=== PATIENT | female | born 1995 | race Caucasian/White ===

== ENCOUNTER 2021-01-22 11:40 | Emergency (ER) | payer OTHER ==
[2021-01-22 12:05] VITALS: PULSE 74; O2SAT 99
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
--- NOTE | 2021-01-22 12:57 | XRAY ---
Indication: Right lower quadrant pain. Limited OB ultrasound demonstrates a single viable intrauterine with heart rate 163 BPM. Composite mean gestational age is 15 weeks 2 days. Anterior placenta without abruption/previa.
[2021-01-22 13:21] LABS: Appearance CLOUDY (CLEAR); Bacteria MODERATE /HPF (NEGATIVE); Bilirubin NEGATIVE (NEGATIVE); Blood NEGATIVE Ery/ul (0-5); Epithelial Cells PACKED /HPF (FEW); Glucose NEGATIVE (NEGATIVE); Ketones TRACE (NEGATIVE); Leukocyte Esterase SMALL (NEGATIVE); Mucus MANY /HPF (NEGATIVE); Nitrite NEGATIVE (NEGATIVE); Protein,Urine Dip 30 (Negative); Specific Gravity 1.021 (1.005-1.025); Urobilinogen NEGATIVE mg/dL (0-1); WBC 26-50 /HPF (0-5)
== END 2021-01-22 13:59 | disposition home or self-care (01) ==
LOC: ED 11:40
DX: O23.42 Unspecified infection of urinary tract in pregnancy, second trimester (principal); Z3A.15 15 weeks gestation of pregnancy
CPT/HCPCS: 76805; 81001; 87086; 99283

== ENCOUNTER 2021-03-25 14:05 | Observation (INO) | payer OTHER ==
[2021-03-25 14:41] VITALS: BP 112/57; PULSE 79
== END 2021-03-25 18:40 | disposition home or self-care (01) ==
LOC: OB 14:05
PROVIDERS: ADMIT Family Medicine; ATTEND Family Medicine
DX: Z34.02 Encounter for supervision of normal first pregnancy, second trimester (principal); Z3A.23 23 weeks gestation of pregnancy
CPT/HCPCS: G0378

== ENCOUNTER 2021-05-30 13:15 | Observation (INO) | payer OTHER ==
[2021-05-30 13:48] LABS: Appearance CLOUDY (CLEAR); Bacteria RARE /HPF (NEGATIVE); Bilirubin NEGATIVE (NEGATIVE); Blood NEGATIVE Ery/ul (0-5); Epithelial Cells MODERATE /HPF (FEW); Glucose NEGATIVE (NEGATIVE); Ketones NEGATIVE (NEGATIVE); Leukocyte Esterase TRACE (NEGATIVE); Mucus SLIGHT /HPF (NEGATIVE); Nitrite NEGATIVE (NEGATIVE); Protein,Urine Dip NEGATIVE (Negative); RBC 0-2 /HPF (0-2); Specific Gravity 1.016 (1.005-1.025); Urobilinogen NEGATIVE mg/dL (0-1)
[2021-05-30 13:49] VITALS: BP 120/63; PULSE 90
== END 2021-05-30 15:55 | disposition home or self-care (01) ==
LOC: OB 13:15
PROVIDERS: ADMIT Family Medicine; ATTEND Family Medicine
DX: Z34.03 Encounter for supervision of normal first pregnancy, third trimester (principal); Z3A.32 32 weeks gestation of pregnancy
CPT/HCPCS: 81001; G0378

== ENCOUNTER 2021-06-18 09:46 | Observation (INO) | payer OTHER ==
[2021-06-18 11:51] LABS: Appearance SLIGHTLY CLOUDY (CLEAR); Bilirubin NEGATIVE (NEGATIVE); Blood NEGATIVE Ery/ul (0-5); Epithelial Cells RARE /HPF (FEW); Glucose NEGATIVE (NEGATIVE); Ketones NEGATIVE (NEGATIVE); Leukocyte Esterase NEGATIVE (NEGATIVE); Mucus SLIGHT /HPF (NEGATIVE); Nitrite NEGATIVE (NEGATIVE); Protein,Urine Dip NEGATIVE (Negative); Specific Gravity 1.015 (1.005-1.025); Urobilinogen NEGATIVE mg/dL (0-1); WBC 0-2 /HPF (0-5)
[2021-06-18 12:04] VITALS: PULSE 77
[2021-06-18 12:07] VITALS: BP 177/67
== END 2021-06-18 13:15 | disposition home or self-care (01) ==
LOC: OB 09:46 → UNDOADMOB 09:46 → UNDODISOB 13:15
PROVIDERS: ADMIT Family Medicine; ATTEND Family Medicine
DX: O26.893 Other specified pregnancy related conditions, third trimester (principal); Z3A.36 36 weeks gestation of pregnancy; R10.9 Unspecified abdominal pain
CPT/HCPCS: 81001; G0378

== ENCOUNTER 2021-07-09 00:05 | Observation (INO) | payer OTHER ==
[2021-07-09 00:47] VITALS: BP 131/68; PULSE 87; O2SAT 98
[2021-07-09] MEDS ORDERED: TYLENOL EXTRA STRENGTH 500 MG PO PRN (01:00)
[2021-07-09] MEDS ORDERED: TYLENOL EXTRA STRENGTH 500 MG ONE (01:03)
[2021-07-09 01:18] LABS: Amphetamine,Urine NEGATIVE (NEGATIVE); Barbiturate,Urine NEGATIVE (NEGATIVE); Benzodiazepine,Urine NEGATIVE (NEGATIVE); Cocaine,Urine NEGATIVE (NEGATIVE); Methadone,Urine NEGATIVE (NEGATIVE); Opiate,Urine NEGATIVE (NEGATIVE); PCP,Urine NEGATIVE (NEGATIVE); THC,Urine NEGATIVE (NEGATIVE)
[2021-07-09 01:20] LABS: Appearance SLIGHTLY CLOUDY (CLEAR); Bilirubin NEGATIVE (NEGATIVE); Blood NEGATIVE Ery/ul (0-5); Epithelial Cells RARE /HPF (FEW); Glucose NEGATIVE (NEGATIVE); Ketones NEGATIVE (NEGATIVE); Leukocyte Esterase NEGATIVE (NEGATIVE); Mucus SLIGHT /HPF (NEGATIVE); Nitrite NEGATIVE (NEGATIVE); Protein,Urine Dip NEGATIVE (Negative); RBC 0-2 /HPF (0-2); Specific Gravity 1.023 (1.005-1.025); Urobilinogen NEGATIVE mg/dL (0-1); WBC 0-2 /HPF (0-5)
[2021-07-09 01:55] LABS: Hematocrit 33.9 % (35-47); Hemoglobin 10.8 gm/dl (12.0-16.0); Mean Cell Volume 93.9 fl (78-100); Mean Corpuscular Hemoglobin 29.9 pg (26-32); Mean Corpuscular Hgb Concent. 31.9 g/dl (32-36); Mean Platelet Volume 10.1 fl (7.5-11.0); Platelet Count 294 K/mm3 (150-450); Red Blood Count 3.61 M/mm3 (4.1-5.4); Red Cell Distribution Width 14.4 % (11.5-14.0); White Blood Count 10.8 K/mm3 (4.0-10.5)
[2021-07-09 02:06] LABS: ALBUMIN 3.4 g/dL (3.5-5.0); ALKALINE PHOSPHATASE 188 U/L (38-126); ANION GAP 10.3 MEQ/L (5-15); BLOOD UREA NITROGEN 14 mg/dL (7-17); CHLORIDE 105 mmol/L (98-107); Calcium 9.3 mg/dL (8.4-10.2); Carbon Dioxide 22 mmol/L (22-30); EST GLOMERULAR FILTRATION RATE > 60.0 ML/MIN; Glucose 99 mg/dL (74-106); Potassium 3.8 mmol/L (3.5-5.1); SGOT/AST 23 U/L (14-36); SGPT/ALT 21 U/L (0-35); SODIUM 133 mmol/L (137-145); Total Protein 6.4 g/dL (6.3-8.2)
== END 2021-07-09 02:55 | disposition home or self-care (01) ==
LOC: UNDOADMOB 00:05 → MED SURG 00:05 → UNDODISOB 02:55
PROVIDERS: ADMIT Family Medicine; ATTEND Family Medicine
DX: Z34.03 Encounter for supervision of normal first pregnancy, third trimester (principal); Z3A.39 39 weeks gestation of pregnancy
CPT/HCPCS: 36415; 80053; 80307; 81001; 85027; G0378; A9270-GY

== ENCOUNTER 2021-07-09 07:56 | Inpatient (IN) | payer OTHER ==
[2021-07-09] MEDS ORDERED: XYLOCAINE 1% HCL 20 ML MDV IJ PRN (16:34)
[2021-07-09] MEDS ORDERED: BRETHINE 1 MG/ML SQ PRN (16:34)
[2021-07-09] MEDS ORDERED: TYLENOL EXTRA STRENGTH 500 MG PO PRN (16:34)
[2021-07-09] MEDS ORDERED: Zofran 4 MG/2 ML VIAL IV PRN (16:34)
[2021-07-09] MEDS ORDERED: Cervidil 10 MG VAG SCH ×2 (16:45→22:00)
[2021-07-09] MEDS ORDERED: PITOCIN 30 UNITS/ LR 500 ML 30 UNITS/500 ML IV.SOLN. IV SCH (17:00)
[2021-07-09 20:27] LABS: Barbiturate,Urine NEGATIVE (NEGATIVE); Benzodiazepine,Urine NEGATIVE (NEGATIVE); Cocaine,Urine NEGATIVE (NEGATIVE); Methadone,Urine NEGATIVE (NEGATIVE); Opiate,Urine NEGATIVE (NEGATIVE); PCP,Urine NEGATIVE (NEGATIVE); THC,Urine NEGATIVE (NEGATIVE)
[2021-07-09 20:30] LABS: Amphetamine,Urine NEGATIVE (NEGATIVE)
[2021-07-09 21:01] LABS: Absolute Neutrophil Ct (ANC) 7.42 (1.4-6.9); BASOPHIL % 0.3 % (0.0-0.4); Basophil (Absolute #) 0.03 (0-0.4); Eosinophil % 4.7 % (0.00-5.0); Eosinophil (Absolute #) 0.51 (0-0.5); Hematocrit 34.4 % (35-47); Hemoglobin 10.9 gm/dl (12.0-16.0); Lymphocyte (Absolute #) 2.26 (1.0-4.6); Lymphocytes % 20.7 % (24.0-44.0); Mean Cell Volume 94.5 fl (78-100); Mean Corpuscular Hemoglobin 29.9 pg (26-32); Mean Corpuscular Hgb Concent. 31.7 g/dl (32-36); Mean Platelet Volume 10.1 fl (7.5-11.0); Monocyte (Absolute #) 0.69 (0.0-1.3); Monocytes % 6.3 % (0.0-12.0); Platelet Count 323 K/mm3 (150-450); Red Blood Count 3.64 M/mm3 (4.1-5.4); Red Cell Distribution Width 14.5 % (11.5-14.0); White Blood Count 10.9 K/mm3 (4.0-10.5)
[2021-07-09 21:40] LABS: ABO TYPING A; Antibody Screen NEGATIVE (NEGATIVE); RH TYPING POSITIVE
[2021-07-10] MEDS ORDERED: Ephedrine Sulfate 50 MG/ML IV PRN (04:34)
[2021-07-10] MEDS ORDERED: PITOCIN 30 UNITS/ LR 500 ML 30 UNITS/500 ML IV.SOLN. IV SCH (06:00)
[2021-07-10] MEDS: Nicoderm CQ 21 MG TOP SCH (08:37)
[2021-07-10] MEDS: Lactated Ringers 1,000 ML IV SCH (09:20)
[2021-07-10] MEDS: PITOCIN 30 UNITS/ LR 500 ML 30 UNITS/500 ML IV.SOLN. IV SCH (09:20)
[2021-07-10] MEDS ORDERED: OB EPIDURAL NAROPIN/SUFENTANIL IN NACL EPIDURAL PRN (12:00)
[2021-07-10] MEDS ORDERED: Lactated Ringers 1,000 ML IV ONE (12:00)
[2021-07-10] MEDS ORDERED: STADOL 2 MG IV PRN (21:42)
[2021-07-10] MEDS: STADOL 2 MG IV PRN (23:47)
[2021-07-11] MEDS: STADOL 2 MG IV PRN (04:09)
[2021-07-11] MEDS: Lactated Ringers 1,000 ML IV SCH ×2 (05:47→06:43)
[2021-07-11] MEDS ORDERED: Reglan 10 MG/2 ML IV SCH (07:45)
[2021-07-11] MEDS ORDERED: Pepcid 20 MG VIAL IV SCH (07:45)
[2021-07-11] MEDS ORDERED: SOD CITRATE-CITRIC ACID SOLN PO SCH (07:45)
[2021-07-11] MEDS ORDERED: Zithromax 500 MG/ 250 ML NaCl Premix 500 MG/250 ML IVPB IV ONE (08:00)
[2021-07-11] MEDS ORDERED: CLINDAMYCIN-D5W 900 MG/50 ML*** 900 MG/50 ML BAG IV SCH (08:00)
[2021-07-11 08:02] LABS: INR 0.94 (0.8-3.0); PROTIME 11.1 SECONDS (9.4-12.5)
[2021-07-11 08:05] LABS: PTT 25.7 SECONDS (25.1-36.5)
[2021-07-11] MEDS ORDERED: XYLOCAINE 2%/Epi 1:200000 20ML VIAL MPF ONE (08:05)
[2021-07-11] MEDS ORDERED: Pitocin 10 UNITS/ML ONE ×3 (08:20→08:49)
[2021-07-11] MEDS ORDERED: Astramorph-Pf 5 MG/10 ML ONE (08:21)
[2021-07-11] MEDS ORDERED: Lactated Ringers 1,000 ML IV ONE (08:28)
[2021-07-11] MEDS ORDERED: MARCAINE 0.5%-EPI 1:200,000 VL IJ ONE (08:43)
[2021-07-11] MEDS ORDERED: Marcaine 0.5%/Epinephrine 10 ML ONE (08:43)
[2021-07-11] MEDS ORDERED: DEMEROL 50 MG ONE (09:14)
[2021-07-11] MEDS ORDERED: MORPHINE SULFATE 2 MG INJ IV PRN (09:23)
[2021-07-11] MEDS ORDERED: BENADRYL 50 MG/ML IV PRN (09:23)
[2021-07-11] MEDS ORDERED: CLARITIN 10 MG PO PRN (09:23)
[2021-07-11] MEDS ORDERED: HOLD NARCOTIC ANALGESICS AND SEDATIVES X24 HR MC PRN (09:23)
[2021-07-11 10:08] LABS: Appearance CLEAR (CLEAR); Bacteria RARE /HPF (NEGATIVE); Bilirubin NEGATIVE (NEGATIVE); Blood SMALL Ery/ul (0-5); Epithelial Cells RARE /HPF (FEW); Glucose NEGATIVE (NEGATIVE); Ketones MODERATE (NEGATIVE); Leukocyte Esterase NEGATIVE (NEGATIVE); Mucus SLIGHT /HPF (NEGATIVE); Nitrite NEGATIVE (NEGATIVE); Protein,Urine Dip NEGATIVE (Negative); Specific Gravity 1.017 (1.005-1.025); Urobilinogen NEGATIVE mg/dL (0-1)
[2021-07-11] MEDS: Dextrose 5%-Lr IV Solution 1000 ML 1,000 ML IV SCH ×2 (10:22→18:56)
[2021-07-11] MEDS ORDERED: M-M-R II Vaccine With Diluent SQ ONE (15:00)
[2021-07-11] MEDS: MOTRIN 400 MG PO PRN ×2 (15:49→22:27)
[2021-07-11] MEDS ORDERED: CLINDAMYCIN-D5W 900 MG/50 ML*** 900 MG/50 ML BAG IV ONE (16:00)
[2021-07-11] MEDS: PERCOCET TABLET 5/325MG PO PRN (19:34)
[2021-07-11] MEDS: Nicoderm CQ 21 MG TOP SCH (22:00)
[2021-07-11] MEDS ORDERED: Ambien 10 MG PO PRN (22:06)
[2021-07-11] MEDS: Mylicon 80MG PO PRN (22:26)
[2021-07-12 05:56] LABS: Absolute Neutrophil Ct (ANC) 6.48 (1.4-6.9); BASOPHIL % 0.2 % (0.0-0.4); Basophil (Absolute #) 0.02 (0-0.4); Eosinophil % 1.3 % (0.00-5.0); Eosinophil (Absolute #) 0.13 (0-0.5); Hematocrit 26.6 % (35-47); Hemoglobin 8.3 gm/dl (12.0-16.0); Lymphocyte (Absolute #) 2.43 (1.0-4.6); Lymphocytes % 24.6 % (24.0-44.0); Mean Cell Volume 95.3 fl (78-100); Mean Corpuscular Hemoglobin 29.7 pg (26-32); Mean Corpuscular Hgb Concent. 31.2 g/dl (32-36); Mean Platelet Volume 10.5 fl (7.5-11.0); Monocyte (Absolute #) 0.81 (0.0-1.3); Monocytes % 8.2 % (0.0-12.0); Neutrophil % 65.7 % (36.0-66.0); Platelet Count 279 K/mm3 (150-450); Red Blood Count 2.79 M/mm3 (4.1-5.4); Red Cell Distribution Width 14.6 % (11.5-14.0); White Blood Count 9.9 K/mm3 (4.0-10.5)
[2021-07-12] MEDS: PERCOCET TABLET 5/325MG PO PRN (07:06)
--- NOTE | 2021-07-12 08:17 | OP ---
SURGERY DATE/TIME: 07/11/2021810 PREOPERATIVE DIAGNOSIS: Intrauterine at 39 weeks and 2 days gestation emulated with breech presentation. POSTOPERATIVE DIAGNOSIS: Intrauterine at 39 weeks and 2 days gestation emulated with breech presentation. PROCEDURE: Primary section, low flap transverse uterine incision, Pfannenstiel skin incision. SURGEON: Dane Gates D.O. [employer] PROFESSOR: Dinesh Aguilar, surgical services manager. ANESTHESIA: Epidural. ESTIMATED BLOOD LOSS: 450 cc. COMPLICATIONS: None. INDICATIONS: The risks, benefits, indications and alternatives of the procedure were reviewed with the patient prior to procedure. The patient understood the risk of infection, bleeding, bowel injury, bladder injury, ureteral injury, uterine perforation, pelvic infection and thromboembolic disorder associated with the surgery however desires to have this surgery as a possible need to alleviate her current medical condition. DESCRIPTION OF PROCEDURE AND FINDINGS: At this point the patient is taken to the operating room secondary to being evaluated in the labor and delivery and was noted to be in breech presentation 8 cm dilated. Where at this point after ultrasound determined that she was in breech presentation and it was determined to transfer to the OR where her epidural anesthesia was found to adequate. She was then prepared and draped in normal sterile fashion in the dorsal supine position with a leftward tilt. A Pfannenstiel skin incision is made with scalpel and carried through to the underlying layer of the fascia with the Bovie. The fascia was then incised in the midline and the incision extended laterally with Hunt scissors. The superior aspect of the fascial incision was then grasped Julian clamps elevated and the underlying rectus muscles dissected off bluntly. Attention is then turned to the inferior aspect of this incision which in similar fashion was grasped, tented up with Julian clamps and the rectus muscles dissected off bluntly. The rectus muscles were then in the midline and the peritoneum identified, tented up and entered sharply with Metzenbaum scissors. The peritoneal incision was then extended superiorly and inferiorly with good visualization of the bladder. The bladder blade was then inserted and the vesicouterine peritoneum identified, grasped with a pickup and entered sharply with Metzenbaum scissors. This incision was then extended laterally and bladder flap created digitally. The bladder blade was then reinserted and the lower uterine segment incised in transverse fashion with a scalpel. The uterine incision was then extended laterally with bandage scissors. The bladder blade was then removed. The infant's buttock was delivered at first and subsequently the upper extremities followed by the lower extremities and finally the head. The nose and mouth were suctioned with bulb suction and the cord clamped and cut. The was then handed off to awaiting nurses. The placenta was then removed manually. The uterus exteriorized and cleared of all clots and debris. The uterine incision was repaired with 1-0 chromic in a running locked fashion. A second layer of the same suture was used to obtain excellent hemostasis. The uterus is then returned to the abdomen. The gutters were cleared of clots and the peritoneal muscle closed in interrupted fashion using 2-0 chromic suture. The fascia was re-approximated with 0 Vicryl in running fashion. The subcutaneous layer was closed with 3-0 Vicryl and the skin was closed with absorbable fran called INSORB. The patient tolerated the procedure well. Sponge, lap, needle and instrument counts were correct x2. The patient was then taken to the recovery room in stable condition. The patient delivered a live baby boy at 0831 hours. 's were 8 at 1 minute and 9 at 5 minutes. The weight of the baby was 6 pounds 13 ounces.
[2021-07-12] MEDS ORDERED: DEMEROL 50 MG IV PRN (09:23)
--- NOTE | 2021-07-12 10:08 | PCM.NOTE ---
Date and Time: 07/12/21 1005 Subjective Assessment: POD 1 SP CSECTION PT RESTING IN BED AND DOING WELL WITH NO COMPLAINTS. VSS AFEBRILE ABD; SOFT INCISION C/D/INTACT UTERUS; FIRM LOCHIA; MILD HGB; 8.3 STABLE A/P SP CSECTION POD 1 SECONDARY TO BREECH PRESENTATION, ANEMIA DOING WELL ENCOURAGE AMBULATION IRON SUPPLEMENTATION ANTICIPATE DISCHARGE TOMORROW OBJECTIVE DATA Vital Signs: Vital Signs - 24 hr Temp Pulse Resp BP Pulse Ox 07/12/21 08:00 98.1 F 78 18 120/55 07/12/21 06:00 96 07/12/21 05:00 97 07/12/21 04:00 96 07/12/21 03:00 96 07/12/21 02:00 98.6 F 78 18 106/61 97 07/11/21 23:40 97 07/11/21 23:00 100 07/11/21 21:00 100 07/11/21 20:00 98.3 F 18 113/65 100 07/11/21 19:00 99 07/11/21 18:00 99 07/11/21 17:00 100 07/11/21 16:00 99 07/11/21 15:00 99 07/11/21 14:00 97.8 F 82 18 101/51 99 07/11/21 13:00 98 07/11/21 12:25 93 H 18 115/56 100 07/11/21 12:00 99 07/11/21 11:25 87 20 105/53 07/11/21 11:00 99 07/11/21 10:55 92 H 18 113/59 99 07/11/21 10:25 98 H 18 118/57 99 07/11/21 10:10 81 18 113/59 99 Pain Assessment - Last Documented Pain Intensity [Anterior] 5 Pain Intensity 6 Pain Scale Used 0-10 Pain Scale Intake and Output: Intake & Output 07/09/21 07/10/21 07/11/21 07/12/21 11:59 11:59 11:59 11:59 Intake Total 750 1933 4166 Output Total 2350 Balance 750 1933 1816 Weight 71.214 kg 71.214 kg Lab Results: Lab Results-Last 24 Hours 07/11/21 07/12/21 Range/Units 08:18 04:20 WBC 9.9 (4.0-10.5) K/mm3 RBC 2.79 L (4.1-5.4) M/mm3 Hgb 8.3 L (12.0-16.0) gm/dl Hct 26.6 L (35-47) % MCV 95.3 (78-100) fl MCH 29.7 (26-32) pg MCHC 31.2 L (32-36) g/dl RDW 14.6 H (11.5-14.0) % Plt Count 279 (150-450) K/mm3 MPV 10.5 (7.5-11.0) fl Gran % 65.7 (36.0-66.0) % Eos # (Auto) 0.13 (0-0.5) Absolute Lymphs (auto) 2.43 (1.0-4.6) Absolute Monos (auto) 0.81 (0.0-1.3) Lymphocytes % 24.6 (24.0-44.0) % Monocytes % 8.2 (0.0-12.0) % Eosinophils % 1.3 (0.00-5.0) % Basophils % 0.2 (0.0-0.4) % Absolute Granulocytes 6.48 (1.4-6.9) Basophils # 0.02 (0-0.4) Urine Color YELLOW (YELLOW) Urine Appearance CLEAR (CLEAR) Urine pH 6.0 (5-6) Ur Specific [place] 1.017 (1.005-1.025) Urine Protein NEGATIVE (Negative) Urine Ketones MODERATE (NEGATIVE) Urine Blood SMALL (0-5) Rush/ul Urine Nitrite NEGATIVE (NEGATIVE) Urine Bilirubin NEGATIVE (NEGATIVE) Urine Urobilinogen NEGATIVE (0-1) mg/dL Ur Leukocyte Esterase NEGATIVE (NEGATIVE) Urine WBC (Auto) 3-5 (0-5) /HPF Urine RBC (Auto) 6-10 (0-2) /HPF U Epithel Cells (Auto) RARE (FEW) /HPF Urine Bacteria (Auto) RARE (NEGATIVE) /HPF Urine Mucus (Auto) SLIGHT (NEGATIVE) /HPF Urine Glucose NEGATIVE (NEGATIVE) mg/dL Assessment/Plan (1) History of primary section Current Visit: Yes Status: Acute Code(s): Z98.891 - HISTORY OF UTERINE SCAR FROM PREVIOUS SURGERY
[2021-07-12] MEDS: FERREX 150 PO SCH (10:23)
[2021-07-12] MEDS: Colace 100 MG PO SCH ×2 (10:23→21:08)
[2021-07-12] MEDS: MOTRIN 400 MG PO PRN ×2 (10:23→23:53)
[2021-07-12] MEDS: Mylicon 80MG PO PRN ×2 (10:37→21:08)
[2021-07-12] MEDS: NORCO 5/325 MG PO PRN ×3 (11:50→21:08)
[2021-07-12] MEDS ORDERED: TORAdol 30 mg Injection IV PRN (12:59)
[2021-07-12] MEDS ORDERED: Lactated Ringers 1,000 ML IV ONE (17:40)
[2021-07-12] MEDS: Dextrose 5%-Lr IV Solution 1000 ML 1,000 ML IV SCH (20:00)
[2021-07-12] MEDS: PITOCIN 30 UNITS/ LR 500 ML 30 UNITS/500 ML IV.SOLN. IV SCH (20:00)
[2021-07-12] MEDS: Lactated Ringers 1,000 ML IV SCH (20:00)
[2021-07-12] MEDS: Nicoderm CQ 21 MG TOP SCH (21:26)
[2021-07-12 22:16] VITALS: O2SAT 99
[2021-07-13] MEDS: NORCO 5/325 MG PO PRN ×3 (01:13→10:45)
[2021-07-13] MEDS: Mylicon 80MG PO PRN (06:03)
[2021-07-13] MEDS: Colace 100 MG PO SCH (10:30)
[2021-07-13] MEDS: FERREX 150 PO SCH (10:31)
--- NOTE | 2021-07-13 10:39 | PCM.NOTE ---
Date and Time: 07/13/21 1037 Subjective Assessment: POD 2 SP CSECTION PT RESTING IN BED DOING WELL AMBULATING AND TOLERATING DIET. VSS AFEBRILE ABD; SOFT INCISION C/D/INTACT UTERUS; FIRM LOCHIA; MILD A/P SP CSECTION POD 2 WITH ANEMIA DC HOME TODAY FU OFFICE 2 WKS OBJECTIVE DATA Vital Signs: Vital Signs - 24 hr Temp Pulse Resp BP Pulse Ox 07/13/21 01:57 98.2 F 81 18 132/78 99 07/12/21 20:00 98.6 F 85 19 133/61 99 07/12/21 14:00 98.1 F 109 H 18 124/63 Pain Assessment - Last Documented Pain Intensity [Anterior] 1 Pain Intensity 2 Pain Scale Used 0-10 Pain Scale Intake and Output: Intake & Output 07/10/21 07/11/21 07/12/21 07/13/21 11:59 11:59 11:59 11:59 Intake Total 750 1933 4166 2340 Output Total 2350 Balance 750 1933 1816 2340 Weight 71.214 kg 71.214 kg Assessment/Plan (1) History of primary section Current Visit: Yes Status: Acute Code(s): Z98.891 - HISTORY OF UTERINE SCAR FROM PREVIOUS SURGERY
--- NOTE | 2021-07-13 10:46 | PCM.DS ---
Discharge Summary Date of Admission: 07/11/21 07:56 Admitting Physician: HINA DE GUZMAN Consults: Consults on Case 07/10/21 12:00 Notify Anesthesia Provider PRN 07/11/21 07:33 Notify Physician OF ADMISSION 07/11/21 09:23 Notify Anesthesia Provider PRN Primary Care Provider: HINA DE GUZMAN Allergies Allergies Penicillins Allergy (Severe, Verified 07/09/21 20:48) Anaphylactic Reaction Hospital Summary - Hospital Course Hospital Course: PT ADMITTED FOR CERVIDIL INDUCTION ON JUL 09 FROM HER PROVIDER AND SUBSEQUENTLY HAD PITOCIN ON JUL 10 IN THE AM. WAS CALLED TO TAKE OVER MANAGEMENT OF PT ON JUL 10 FOR WHICH HER EXAM HAD BEEN 3 AND CYTOTEC WAS STARTED. PT WAS THEN EXAMINED ON JUL 11 IN THE AM AND WAS NOTED TO BEING IN BREECH PRESENTATION AND SUBSEQUENTLY UNDERWENT CSECTION IN THE AM. PT DELIVERED LIVE BABY BOY WITHOUT COMPLICATION. DURING POSTOP PERIOD PT DID WELL AND WAS NOTED HAVING A HGB OF 8.3 FOR WHICH SHE WAS STARTED ON IRON SUPPLEMENTATION. AT THIS TIME PT STABLE FOR DISCHARGE AND WAS ADVISED TO FU IN 2 WKS FOR POSTOP CHECK. ALL QUESTIONS ANSWERED TO HER SATISFACTION AND WILL BE GIVEN [facility]CO FOR PAIN MANAGEMENT AND IRON SUPPLEMENTATION. - Vitals & Intake/Output Vital Signs: Vital Signs Temperature 98.2 F 07/13/21 01:57 Pulse Rate 81 07/13/21 01:57 Respiratory Rate 18 07/13/21 01:57 Blood Pressure 132/78 07/13/21 01:57 O2 Sat by Pulse Oximetry 99 07/13/21 01:57 Intake & Output: Intake & Output 07/10/21 07/11/21 07/12/21 07/13/21 11:59 11:59 11:59 11:59 Intake Total 750 1933 4166 2340 Output Total 2350 Balance 750 1933 1816 2340 Weight 71.214 kg 71.214 kg - Lab Result Diagrams: 07/12/21 04:20 Micro Results-Entire Visit: Microbiology 07/11/21 08:18 Urine Culture - Final Urine, Catheterized NO GROWTH Final Diagnosis/Problem List - Final Discharge Diagnosis/Problem (1) History of primary section Current Visit: Yes Status: Acute Code(s): Z98.891 - HISTORY OF UTERINE SCAR FROM PREVIOUS SURGERY - Discharge Disposition: Home, Self-Care Condition: Stable Prescriptions: New Hydrocodone/Acetaminophen [Hydrocodone-Acetamin 5-325 mg] 1 tab PO Q6HPRN PRN #30 tablet MDD 4 PRN Reason: Pain Continue Vits W-Ca,Fe,FA(<1Mg) [] 1 tab PO DAILY Ferrous Sulfate 325 mg [Feosol 325 mg] 325 mg PO DAILY #60 tablet Follow up with: HINA DE GUZMAN [Primary Care Provider] - ADRIEL MARVIN DO [ACTIVE STAFF] - 2 weeks (no heavy lifting no intercourse for 6 wks)
[2021-07-13] MEDS: Nicoderm CQ 21 MG TOP SCH (10:54)
[2021-07-13 12:32] VITALS: BP 124/59; PULSE 92
== END 2021-07-13 15:25 | disposition home or self-care (01) | DRG 788 ==
LOC: OB 07:56 → EEVIPCON 18:55 → OBSVTOIN 07-11 07:56
PROVIDERS: ADMIT Family Medicine; ATTEND Family Medicine
PROC: 10D00Z1 Extraction of Products of Conception, Low, Open Approach (ICD-10-PCS; principal; 2021-07-11)
DX: O34.219 Maternal care for unspecified type scar from previous cesarean delivery (principal); Z3A.39 39 weeks gestation of pregnancy; Z37.0 Single live birth
CPT/HCPCS: 36415; 59514; 62322; 64488; 76937; 76942; 80053; 80307; 81001; 81003; 85025; 85027; 85610; 85730; 86850; 86900; 86901; 87086; 90471; 90707; G0378; J0456; J0595; J2175; J2274; J2590; J2795; L0625; A9270-GY

== ENCOUNTER 2021-12-13 22:07 | Emergency (ER) | payer OTHER ==
[2021-12-13] MEDS ORDERED: Zofran 4 MG/2 ML VIAL IV ONE (22:15)
[2021-12-13] MEDS ORDERED: Sodium Chloride 0.9% 1000 ML 1,000 ML IV STA ×2 (22:15→22:51)
[2021-12-13] MEDS ORDERED: Zofran 4 MG/2 ML VIAL ONE (22:24)
[2021-12-13] MEDS ORDERED: Sodium Chloride 0.9% 1000 ML 1,000 ML ONE ×2 (22:24→22:53)
[2021-12-13 22:26] LABS: Absolute Neutrophil Ct (ANC) 7.02 (1.4-6.9); Basophil (Absolute #) 0.01 (0-0.4); Eosinophil % 2.5 % (0.00-5.0); Eosinophil (Absolute #) 0.22 (0-0.5); Hematocrit 42.7 % (35-47); Hemoglobin 14.2 gm/dl (12.0-16.0); Lymphocyte (Absolute #) 1.21 (1.0-4.6); Lymphocytes % 13.7 % (24.0-44.0); Mean Cell Volume 87.5 fl (78-100); Mean Corpuscular Hemoglobin 29.1 pg (26-32); Mean Corpuscular Hgb Concent. 33.3 g/dl (32-36); Mean Platelet Volume 9.9 fl (7.5-11.0); Monocyte (Absolute #) 0.36 (0.0-1.3); Monocytes % 4.1 % (0.0-12.0); Neutrophil % 79.6 % (36.0-66.0); Platelet Count 282 K/mm3 (150-450); Red Blood Count 4.88 M/mm3 (4.1-5.4); Red Cell Distribution Width 15.7 % (11.5-14.0); White Blood Count 8.8 K/mm3 (4.0-10.5)
[2021-12-13 22:36] LABS: Appearance SLIGHTLY CLOUDY (CLEAR); Bacteria RARE /HPF (NEGATIVE); Bilirubin SMALL (NEGATIVE); Blood NEGATIVE Ery/ul (0-5); Epithelial Cells RARE /HPF (FEW); Glucose NEGATIVE (NEGATIVE); Ketones NEGATIVE (NEGATIVE); Leukocyte Esterase TRACE (NEGATIVE); Mucus MANY /HPF (NEGATIVE); Nitrite NEGATIVE (NEGATIVE); Protein,Urine Dip 30 (Negative); RBC 0-2 /HPF (0-2); Specific Gravity 1.029 (1.005-1.025); Urobilinogen NEGATIVE mg/dL (0-1)
[2021-12-13 22:38] LABS: ALBUMIN 4.9 g/dL (3.5-5.0); ALKALINE PHOSPHATASE 81 U/L (38-126); AMYLASE 56 U/L (30-110); ANION GAP 14.7 MEQ/L (5-15); BLOOD UREA NITROGEN 21 mg/dL (7-17); CHLORIDE 106 mmol/L (98-107); Calcium 9.7 mg/dL (8.4-10.2); Carbon Dioxide 23 mmol/L (22-30); Creatinine 1 0.74 mg/dL (0.52-1.04); EST GLOMERULAR FILTRATION RATE > 60.0 ML/MIN; Glucose 92 mg/dL (74-106); LIPASE 142 U/L (23-300); Potassium 3.8 mmol/L (3.5-5.1); SGOT/AST 33 U/L (14-36); SGPT/ALT 42 U/L (0-35); SODIUM 140 mmol/L (137-145)
--- NOTE | 2021-12-13 22:40 | ERPHSYRPT ---
- History of Present Illness Historian: patient Exam Limitations: no limitations Patient Subjective Stated Complaint: abd pain, nausea and vomiting and diarrhea Triage Nursing Assessment: pt c/o abd pain since 1430 today. Pt ate [employer] for lunch at 1400 and has been sick to her stomach since 1430. Pt has abd pain, nausea, vomiting and diarrhea. Abd soft with active bsx4 quad, tender on palpation to the center of the belly at the umbilicus. Physician History: 26 yo wf w N/V/D starting at 17:00. She has mod epigastric pain described as cramping and rated a 5. Pt denies hematemesis/melena/hematochezia/dysuria/hematuria/fever/cough/coryza. Timing/Duration: other (17:00) Quality: cramping Abdominal Pain Onset Location: epigastric Pain Radiation: no radiation Severity of Pain-Max: severe Severity of Pain-Current: moderate Modifying Factors: Improves With: vomiting. Worsens With: analgesics, antacids, breathing, coughing, defecating, eating, exercise, lying down, movement, palpation, rest, urinating, position, walking Associated Symptoms: diarrhea, nausea, vomiting, No back, No chest pain, No diaphoresis, No fever/chills, No fatigue, No headache, No heartburn, No loss of appetite, No neck pain, No rash, No shortness of breath, No syncope, No weakness Previous symptoms: no prior history Allergies/Adverse Reactions: Penicillins Allergy (Severe, Verified 12/13/21 22:17) Anaphylactic Reaction Hx Tetanus, Diphtheria Vaccination/Date Given: Yes Hx Influenza Vaccination/Date Given: Yes Hx Pneumococcal Vaccination/Date Given: No Immunizations Up to Date: Yes Travel Risk - International Travel Have you traveled outside of the country in past 3 weeks: No - Coronavirus Screening Are you exhibiting any of the following symptoms?: Yes Symptoms: Vomiting/Diarrhea Close contact with a COVID-19 positive Pt in past 14-21 Days: No - Vaccine Status Have you recieved a Covid-19 vaccination: Yes [employer] C[employer]: [employer] - Vaccination Dates Date of 2cond Vaccination (if applicable): 06/27/21 - Review of Systems Constitutional: No Symptoms Eyes: No Symptoms Ears, Nose, & Throat: No Symptoms Respiratory: No Symptoms Cardiac: No Symptoms Abdominal/Gastrointestinal: No Symptoms, Abdominal Pain, Nausea, Vomiting, Diarrhea Genitourinary Symptoms: No Symptoms Musculoskeletal: No Symptoms Skin: No Symptoms Neurological: No Symptoms Psychological: No Symptoms Endocrine: No Symptoms Hematologic/Lymphatic: No Symptoms Immunological/Allergic: No Symptoms - Past Medical History Pertinent Past Medical History: Yes Neurological History: No Pertinent History ENT History: No Pertinent History Cardiac History: No Pertinent History Respiratory History: Asthma Endocrine Medical History: No Pertinent History Musculoskeletal History: No Pertinent History GI Medical History: Other History: No Pertinent History Psycho-Social History: Bipolar, Depression, Other Female Reproductive Disorders: No Pertinent History Other Medical History: Heart Murmer, seasonal depression, and manic - Past Surgical History Past Surgical History: Yes Neuro Surgical History: No Pertinent History Cardiac: No Pertinent History Respiratory: No Pertinent History Gastrointestinal: No Pertinent History Genitourinary: No Pertinent History Musculoskeletal: No Pertinent History Female Surgical History: Section - Social History Smoking Status: Current every day smoker How long have you smoked: 2 yrs Exposure to second hand smoke: Yes Drug Use: none Patient Lives Alone: No Significant Family History: no pertinent family hx - Female History Hx Now: No - Nursing Vital Signs Nursing Vital Signs: Initial Vital Signs Temperature 98.6 F 12/13/21 22:08 Pulse Rate 110 H 12/13/21 22:08 Respiratory Rate 18 12/13/21 22:08 Blood Pressure 136/97 12/13/21 22:08 O2 Sat by Pulse Oximetry 100 12/13/21 22:08 Pain Scale Pain Intensity 0 Tachy/mildly hypertensive - Physical Exam General Appearance: no apparent distress Eye Exam: PERRL/EOMI, eyes nml inspection Ears, Nose, Throat Exam: normal ENT inspection, TMs normal, pharynx normal, moist mucous membranes Neck Exam: normal inspection, non-tender, supple, full range of motion, No meningismus, No mass, No Brudzinski, No Kernig's Respiratory Exam: normal breath sounds, lungs clear, airway intact Cardiovascular Exam: tachycardia (Mild), capillary refill <2 sec, No murmur Gastrointestinal/Abdomen Exam: soft, normal bowel sounds, tenderness (Mild epigastric TTP wo guarding or rebound) Back Exam: normal inspection, normal range of motion, No CVA tenderness, No vertebral tenderness Extremity Exam: normal inspection, normal range of motion Neurologic Exam: alert, oriented x 3, cooperative, fur remodeler II-XII nml as tested, normal mood/affect, sensation nml, No nml cerebellar function, No nml station & gait, No motor deficits, No sensory deficit Skin Exam: normal color, warm, dry Lymphatic Exam: No adenopathy SpO2 Interpretation: normal SpO2: 100 O2 Delivery: Room Air - Course Nursing assessment & vital signs reviewed: Yes Ordered Tests: Active Orders 24 hr Category Date Time Status IV Insertion STAT Care 12/13/21 22:15 Completed AMYLASE Stat Lab 12/13/21 22:15 Completed CBC W DIFF Stat Lab 12/13/21 22:15 Completed CMP Stat Lab 12/13/21 22:15 Completed CULTURE,URINE Stat Lab 12/13/21 22:21 Received HCG QUALITATIVE,SERUM Stat Lab 12/13/21 22:30 Completed LIPASE Stat Lab 12/13/21 22:15 Completed UA W/RFX UR CULTURE Stat Lab 12/13/21 22:21 Completed Medication Summary Discontinued Medications Generic Name Dose Route Start Last Admin Trade Name Freq PRN Reason Stop Dose Admin Sodium Chloride 1,000 mls @ 999 mls/hr 12/13/21 22:15 12/13/21 23:30 Sodium Chloride 0.9% 1000 Ml IV 12/13/21 23:15 Infused .Q1H1M STA Infusion Sodium Chloride Confirm 12/13/21 22:24 Sodium Chloride 0.9% 1000 Ml Administered 12/13/21 22:25 Dose 1,000 mls @ ud .ROUTE .STK-MED ONE Sodium Chloride 1,000 mls @ 999 mls/hr 12/13/21 22:51 12/14/21 00:32 Sodium Chloride 0.9% 1000 Ml IV 12/13/21 23:51 Infused .Q1H1M STA Infusion Sodium Chloride Confirm 12/13/21 22:53 Sodium Chloride 0.9% 1000 Ml Administered 12/13/21 22:54 Dose 1,000 mls @ ud .ROUTE .STK-MED ONE Ketorolac Tromethamine 15 mg 12/13/21 22:52 12/13/21 22:54 Ketorolac Tromethamine 30 Mg/Ml Inj IV 12/13/21 22:53 15 mg STAT ONE Administration Ketorolac Tromethamine Confirm 12/13/21 22:53 Ketorolac Tromethamine 30 Mg/Ml Inj Administered 12/13/21 22:54 Dose 30 mg .ROUTE .STK-MED ONE Ondansetron HCl 4 mg 12/13/21 22:15 12/13/21 22:26 Ondansetron Hcl 4 Mg/2 Ml Vial IV 12/13/21 22:16 4 mg STAT ONE Administration Ondansetron HCl Confirm 12/13/21 22:24 Ondansetron Hcl 4 Mg/2 Ml Vial Administered 12/13/21 22:25 Dose 4 mg .ROUTE .[facility] ONE Lab/Rad Data: Laboratory Result Diagrams 12/13/21 22:15 12/13/21 22:15 Laboratory Results 12/13/21 12/13/21 12/13/21 Range/Units 22:30 22:21 22:15 WBC (4.0-10.5) K/mm3 RBC (4.1-5.4) M/mm3 Hgb (12.0-16.0) gm/dl Hct (35-47) % MCV (78-100) fl MCH (26-32) pg MCHC (32-36) g/dl RDW (11.5-14.0) % Plt Count (150-450) K/mm3 MPV (7.5-11.0) fl Gran % (36.0-66.0) % Eos # (Auto) (0-0.5) Absolute Lymphs (auto) (1.0-4.6) Absolute Monos (auto) (0.0-1.3) Lymphocytes % (24.0-44.0) % Monocytes % (0.0-12.0) % Eosinophils % (0.00-5.0) % Basophils % (0.0-0.4) % Absolute Granulocytes (1.4-6.9) Basophils # (0-0.4) Sodium 140 (137-145) mmol/L Potassium 3.8 (3.5-5.1) mmol/L Chloride 106 (98-107) mmol/L Carbon Dioxide 23 (22-30) mmol/L Anion Gap 14.7 (5-15) MEQ/L BUN 21 H (7-17) mg/dL Creatinine 0.74 (0.52-1.04) mg/dL Estimated GFR > 60.0 ML/MIN Glucose 92 (74-106) mg/dL Calcium 9.7 (8.4-10.2) mg/dL Total Bilirubin 0.80 (0.2-1.3) mg/dL AST 33 (14-36) U/L ALT 42 H (0-35) U/L Alkaline Phosphatase 81 (38-126) U/L Serum Total Protein 8.0 (6.3-8.2) g/dL Albumin 4.9 (3.5-5.0) g/dL Amylase 56 (30-110) U/L Lipase 142 (23-300) U/L Serum , Qual NEGATIVE (Negative) Urine Color TONO (YELLOW) Urine Appearance SLIGHTLY CLOUDY (CLEAR) Urine pH 5.0 (5-6) Ur Specific [place] 1.029 (1.005-1.025) Urine Protein 30 (Negative) Urine Ketones NEGATIVE (NEGATIVE) Urine Blood NEGATIVE (0-5) Rush/ul Urine Nitrite NEGATIVE (NEGATIVE) Urine Bilirubin SMALL (NEGATIVE) Urine Urobilinogen NEGATIVE (0-1) mg/dL Ur Leukocyte Esterase TRACE (NEGATIVE) Urine WBC (Auto) 6-10 (0-5) /HPF Urine RBC (Auto) 0-2 (0-2) /HPF U Epithel Cells (Auto) RARE (FEW) /HPF Urine Bacteria (Auto) RARE (NEGATIVE) /HPF Urine Mucus (Auto) MANY (NEGATIVE) /HPF Urine Culture Reflexed YES (NO) Urine Glucose NEGATIVE (NEGATIVE) mg/dL 12/13/21 Range/Units 22:15 WBC 8.8 (4.0-10.5) K/mm3 RBC 4.88 (4.1-5.4) M/mm3 Hgb 14.2 (12.0-16.0) gm/dl Hct 42.7 (35-47) % MCV 87.5 (78-100) fl MCH 29.1 (26-32) pg MCHC 33.3 (32-36) g/dl RDW 15.7 H (11.5-14.0) % Plt Count 282 (150-450) K/mm3 MPV 9.9 (7.5-11.0) fl Gran % 79.6 H (36.0-66.0) % Eos # (Auto) 0.22 (0-0.5) Absolute Lymphs (auto) 1.21 (1.0-4.6) Absolute Monos (auto) 0.36 (0.0-1.3) Lymphocytes % 13.7 L (24.0-44.0) % Monocytes % 4.1 (0.0-12.0) % Eosinophils % 2.5 (0.00-5.0) % Basophils % 0.1 (0.0-0.4) % Absolute Granulocytes 7.02 H (1.4-6.9) Basophils # 0.01 (0-0.4) Sodium (137-145) mmol/L Potassium (3.5-5.1) mmol/L Chloride (98-107) mmol/L Carbon Dioxide (22-30) mmol/L Anion Gap (5-15) MEQ/L BUN (7-17) mg/dL Creatinine (0.52-1.04) mg/dL Estimated GFR ML/MIN Glucose (74-106) mg/dL Calcium (8.4-10.2) mg/dL Total Bilirubin (0.2-1.3) mg/dL AST (14-36) U/L ALT (0-35) U/L Alkaline Phosphatase (38-126) U/L Serum Total Protein (6.3-8.2) g/dL Albumin (3.5-5.0) g/dL Amylase (30-110) U/L Lipase (23-300) U/L Serum , Qual (Negative) Urine Color (YELLOW) Urine Appearance (CLEAR) Urine pH (5-6) Ur Specific [place] (1.005-1.025) Urine Protein (Negative) Urine Ketones (NEGATIVE) Urine Blood (0-5) Rush/ul Urine Nitrite (NEGATIVE) Urine Bilirubin (NEGATIVE) Urine Urobilinogen (0-1) mg/dL Ur Leukocyte Esterase (NEGATIVE) Urine WBC (Auto) (0-5) /HPF Urine RBC (Auto) (0-2) /HPF U Epithel Cells (Auto) (FEW) /HPF Urine Bacteria (Auto) (NEGATIVE) /HPF Urine Mucus (Auto) (NEGATIVE) /HPF Urine Culture Reflexed (NO) Urine Glucose (NEGATIVE) mg/dL - Progress Progress: improved Progress Note: 12/14/21 00:09 1L NS x2 Zofran 4mg IV x1 Toradol 15mg IV x1 Counseled pt/family regarding: lab results, diagnosis, need for follow-up - Departure Departure Disposition: Home Clinical Impression: Nausea & vomiting, Diarrhea, UTI (urinary tract infection) Condition: Stable Critical Care Time: No Referrals: HINA DE GUZMAN [Primary Care Provider] - Follow up/PCP as directed Instructions: Diarrhea in Adolescents and Adults, Urinary Tract Infection, Adult (DC), Nausea and Vomiting, Adult (DC) Additional Instructions: Fluids Zofran for nausea/vomiting Start Macrobid for urinary tract infection Return to ER for increasing pain, temperature greater than 100.5, or inability to hold down fluids Forms: Work/School Release Form Prescriptions: Nitrofurantoin Monohyd/M-Cryst [Macrobid 100 mg Capsule] 100 mg PO BID #10 Ondansetron ODT 4 MG [Zofran Odt 4 mg] 4 mg PO STAT PRN #10 tab PRN Reason: Nausea/Vomiting
[2021-12-13] MEDS ORDERED: TORAdol 30 mg Injection IV ONE (22:52)
[2021-12-13] MEDS ORDERED: TORAdol 30 mg Injection ONE (22:53)
[2021-12-14 00:35] VITALS: BP 108/57; PULSE 80
[2021-12-14 04:42] VITALS: O2SAT 100
== END 2021-12-14 00:36 | disposition home or self-care (01) ==
LOC: ED 22:07
DX: N39.0 Urinary tract infection, site not specified (principal); R11.2 Nausea with vomiting, unspecified; R19.7 Diarrhea, unspecified; R10.13 Epigastric pain; Z72.0 Tobacco use
CPT/HCPCS: 36000; 36415; 80053; 81001; 81025; 82150; 83690; 85025; 87086; 96374; 96375; 99284; J1885; J2405

== ENCOUNTER 2022-04-21 19:56 | Emergency (ER) | payer OTHER ==
--- NOTE | 2022-04-21 20:27 | ERPHSYRPT ---
- History of Present Illness Historian: patient Exam Limitations: no limitations Patient Subjective Stated Complaint: pt states "I went on a trip this weekend and had 6 red bulls. I think I am deydrated. My back and kids hurt so bad." Triage Nursing Assessment: pt ambulated into the er; pt is axo x4; c/o flank pain; pt states 6/10 pain to crystal flank region; c/o dehydration; pt states urine is yellow/ brown and has odor; abd is round and soft; nontender with palpitation; tendernes with palpitation to crystal flank; hyperactive bowel sounds in all quads; vitals wnl Physician History: 26 yo WF w B CVA pain x 1 day. Pain is sharp/stabbing and 6/10. Leaning forward makes the pain better. She denies N/V/D/dysuria/hematuria/melana/hematochezia/. Pt has never had this pain before. Timing/Duration: today Activities at Onset: rest Quality: sharpness, stabbing Abdominal Pain Onset Location: other (B CVA) Pain Radiation: no radiation Severity of Pain-Max: moderate Severity of Pain-Current: moderate Modifying Factors: Improves With: other (Leaning forward makes pain better) Associated Symptoms: back, No chest pain, No diaphoresis, No diarrhea, No fever/chills, No fatigue, No headache, No heartburn, No loss of appetite, No nausea, No neck pain, No rash, No shortness of breath, No syncope, No vomiting, No weakness Previous symptoms: no prior history Allergies/Adverse Reactions: Penicillins Allergy (Severe, Verified 04/21/22 20:10) Anaphylactic Reaction Hx Tetanus, Diphtheria Vaccination/Date Given: Yes Hx Influenza Vaccination/Date Given: Yes Hx Pneumococcal Vaccination/Date Given: No Travel Risk - International Travel Have you traveled outside of the country in past 3 weeks: No - Coronavirus Screening Are you exhibiting any of the following symptoms?: Yes Symptoms: Headaches/Body Aches/Fatigue Close contact with a COVID-19 positive Pt in past 14-21 Days: No - Vaccine Status Have you recieved a Covid-19 vaccination: Yes Relationship Manager: [employer] - Vaccination Dates Date of 2cond Vaccination (if applicable): 06/27/21 - Review of Systems Constitutional: No Symptoms Eyes: No Symptoms Ears, Nose, & Throat: No Symptoms Respiratory: No Symptoms Cardiac: No Symptoms Abdominal/Gastrointestinal: No Symptoms, Abdominal Pain Genitourinary Symptoms: No Symptoms Musculoskeletal: No Symptoms Skin: No Symptoms Neurological: No Symptoms Psychological: No Symptoms Endocrine: No Symptoms Hematologic/Lymphatic: No Symptoms Immunological/Allergic: No Symptoms - Past Medical History Pertinent Past Medical History: Yes Neurological History: No Pertinent History ENT History: No Pertinent History Cardiac History: No Pertinent History Respiratory History: Asthma Endocrine Medical History: No Pertinent History Musculoskeletal History: No Pertinent History GI Medical History: Other History: No Pertinent History Psycho-Social History: Bipolar, Depression, Other Female Reproductive Disorders: No Pertinent History Other Medical History: Heart Murmer, seasonal depression, and manic - Past Surgical History Past Surgical History: Yes Neuro Surgical History: No Pertinent History Cardiac: No Pertinent History Respiratory: No Pertinent History Gastrointestinal: No Pertinent History Genitourinary: No Pertinent History Musculoskeletal: No Pertinent History Female Surgical History: Section - Social History Smoking Status: Current every day smoker How long have you smoked: 2 yrs Exposure to second hand smoke: Yes Drug Use: none Patient Lives Alone: No Significant Family History: no pertinent family hx - Female History Hx Now: No - Nursing Vital Signs Nursing Vital Signs: Initial Vital Signs Temperature 99.6 F 04/21/22 20:11 Pulse Rate 96 H 04/21/22 20:11 Respiratory Rate 20 04/21/22 20:11 Blood Pressure 140/78 04/21/22 20:11 O2 Sat by Pulse Oximetry 99 04/21/22 20:11 Pain Scale Pain Intensity 5 WNL - Physical Exam General Appearance: no apparent distress Eye Exam: PERRL/EOMI, eyes nml inspection Ears, Nose, Throat Exam: normal ENT inspection, TMs normal, pharynx normal, dominic st mucous membranes Neck Exam: normal inspection, non-tender, supple, full range of motion, No meningismus, No mass, No Brudzinski, No Kernig's Respiratory Exam: normal breath sounds, lungs clear, airway intact Cardiovascular Exam: regular rate/rhythm, normal heart sounds, normal peripheral pulses, capillary refill <2 sec, No murmur Gastrointestinal/Abdomen Exam: soft, normal bowel sounds, No tenderness Back Exam: CVA tenderness (Moderate B) Extremity Exam: normal inspection, normal range of motion Neurologic Exam: alert, oriented x 3, cooperative, aerophysicist II-XII nml as tested, normal mood/affect, nml cerebellar function, nml station & gait, sensation nml, No motor deficits, No sensory deficit Skin Exam: normal color, warm, dry Lymphatic Exam: No adenopathy SpO2 Interpretation: normal SpO2: 99 O2 Delivery: Room Air - Course Nursing assessment & vital signs reviewed: Yes - CT Exams Abdomen/Pelvis CT Interpretation: Discussed w/radiologist (IUD/Tiny culde sac fluid, most likely from ruptured cyst) Ordered Tests: Active Orders 24 hr Category Date Time Status ABDOMEN AND PELVIS W/0 CONTRAS [CT] Stat Exams 04/21/22 21:28 Taken CBC W DIFF Stat Lab 04/21/22 20:40 Completed CMP Stat Lab 04/21/22 20:40 Completed HCG QUALITATIVE,SERUM Stat Lab 04/21/22 20:40 Completed UA W/RFX CULTURE Stat Lab 04/21/22 20:39 Completed Medication Summary Discontinued Medications Generic Name Dose Route Start Last Admin Trade Name Ozq PRN Reason Stop Dose Admin Sodium Chloride 1,000 mls @ 999 mls/hr 04/21/22 22:47 04/21/22 23:48 Sodium Chloride 0.9% 1000 Ml IV 04/21/22 23:47 Infused .Q1H1M STA Infusion Sodium Chloride Confirm 04/21/22 22:53 Sodium Chloride 0.9% 1000 Ml Administered 04/21/22 22:54 Dose 1,000 mls @ ud .ROUTE .STK-MED ONE Ketorolac Tromethamine 30 mg 04/21/22 22:47 04/21/22 22:53 Ketorolac Tromethamine 30 Mg/Ml Inj IV 04/21/22 22:48 30 mg STAT ONE Administration Ketorolac Tromethamine Confirm 04/21/22 22:53 Ketorolac Tromethamine 30 Mg/Ml Inj Administered 04/21/22 22:54 Dose 30 mg .ROUTE .STK-MED ONE Lab/Rad Data: Laboratory Result Diagrams 04/21/22 20:40 04/21/22 20:40 Laboratory Results 04/21/22 04/21/22 04/21/22 Range/Units 22:50 20:40 20:40 WBC (4.0-10.5) x10^3/uL RBC (4.1-5.4) x10^6/uL Hgb (12.0-16.0) g/dL Hct (35-47) % MCV (78-100) fL MCH (26-32) pg MCHC (32-36) g/dL RDW (11.5-14.0) % Plt Count (150-450) x10^3/uL MPV (7.5-11.0) fL Gran % (36.0-66.0) % Immature Gran % (Auto) (0.00-0.4) % Nucleat RBC Rel Count (0.00-0.1) % Eos # (Auto) (0-0.5) x10^3/uL Immature Gran # (Auto) (0.00-0.03) x10^3u/L Absolute Lymphs (auto) (1.0-4.6) x10^3/uL Absolute Monos (auto) (0.0-1.3) x10^3/uL Absolute Nucleated RBC (0.00-0.01) x10^3u/L Lymphocytes % (24.0-44.0) % Monocytes % (0.0-12.0) % Eosinophils % (0.00-5.0) % Basophils % (0.0-0.4) % Absolute Granulocytes (1.4-6.9) x10^3/uL Basophils # (0-0.4) x10^3/uL Sodium 137 (137-145) mmol/L Potassium 3.9 (3.5-5.1) mmol/L Chloride 105 (98-107) mmol/L Carbon Dioxide 23 (22-30) mmol/L Anion Gap 13.0 (5-15) MEQ/L BUN 17 (7-17) mg/dL Creatinine 0.64 (0.52-1.04) mg/dL Estimated GFR > 60.0 ML/MIN Glucose 110 H (74-106) mg/dL Calcium 9.1 (8.4-10.2) mg/dL Total Bilirubin 0.70 (0.2-1.3) mg/dL AST 34 (14-36) U/L ALT 23 (0-35) U/L Alkaline Phosphatase 66 (38-126) U/L Serum Total Protein 7.3 (6.3-8.2) g/dL Albumin 4.1 (3.5-5.0) g/dL Serum , Qual NEGATIVE (Negative) Urinalys Dipstick Clnc Urine Color (YELLOW) Urine Appearance (CLEAR) Urine pH (5-6) Ur Specific [place] (1.005-1.025) POC Urine Protein Conf (Negative) Urine Ketones (NEGATIVE) Urine Nitrite (NEGATIVE) Urine Bilirubin (NEGATIVE) Urine Urobilinogen (0-1) mg/dL Urine Leukocytes (NEGATIVE) Urine WBC (Auto) (0-5) /HPF Urine RBC (Auto) (0-2) /HPF U Epithel Cells (Auto) (FEW) /HPF Urine Bacteria (Auto) (NEGATIVE) /HPF Urine RBC (0-5) Rush/ul Urine Mucus (Auto) (NEGATIVE) /HPF Ur Culture Indicated? Urine Glucose (NEGATIVE) mg/dL Influenza Type A Ag NEGATIVE (NEGATIVE) Influenza Type B Ag NEGATIVE (NEGATIVE) RSV (PCR) NEGATIVE (Negative) SARS-CoV-2 (PCR) POSITIVE A (NEGATIVE) Slides for Path Review 04/21/22 04/21/22 Range/Units 20:40 20:39 WBC 4.7 (4.0-10.5) x10^3/uL RBC 4.15 (4.1-5.4) x10^6/uL Hgb 12.3 (12.0-16.0) g/dL Hct 38.7 (35-47) % MCV 93.3 (78-100) fL MCH 29.6 (26-32) pg MCHC 31.8 L (32-36) g/dL RDW 13.1 (11.5-14.0) % Plt Count 239 (150-450) x10^3/uL MPV 9.7 (7.5-11.0) fL Gran % 86.3 H (36.0-66.0) % Immature Gran % (Auto) 0.4 (0.00-0.4) % Nucleat RBC Rel Count 0.0 (0.00-0.1) % Eos # (Auto) 0.10 (0-0.5) x10^3/uL Immature Gran # (Auto) 0.02 (0.00-0.03) x10^3u/L Absolute Lymphs (auto) 0.35 L (1.0-4.6) x10^3/uL Absolute Monos (auto) 0.16 (0.0-1.3) x10^3/uL Absolute Nucleated RBC 0.00 (0.00-0.01) x10^3u/L Lymphocytes % 7.4 L (24.0-44.0) % Monocytes % 3.4 (0.0-12.0) % Eosinophils % 2.1 (0.00-5.0) % Basophils % 0.4 (0.0-0.4) % Absolute Granulocytes 4.05 (1.4-6.9) x10^3/uL Basophils # 0.02 (0-0.4) x10^3/uL Sodium (137-145) mmol/L Potassium (3.5-5.1) mmol/L Chloride (98-107) mmol/L Carbon Dioxide (22-30) mmol/L Anion Gap (5-15) MEQ/L BUN (7-17) mg/dL Creatinine (0.52-1.04) mg/dL Estimated GFR ML/MIN Glucose (74-106) mg/dL Calcium (8.4-10.2) mg/dL Total Bilirubin (0.2-1.3) mg/dL AST (14-36) U/L ALT (0-35) U/L Alkaline Phosphatase (38-126) U/L Serum Total Protein (6.3-8.2) g/dL Albumin (3.5-5.0) g/dL Serum , Qual (Negative) Urinalys Dipstick Clnc MAIN LAB Urine Color YELLOW (YELLOW) Urine Appearance CLEAR (CLEAR) Urine pH 7.0 (5-6) Ur Specific [place] 1.025 (1.005-1.025) POC Urine Protein Conf NEGATIVE (Negative) Urine Ketones NEGATIVE (NEGATIVE) Urine Nitrite NEGATIVE (NEGATIVE) Urine Bilirubin NEGATIVE (NEGATIVE) Urine Urobilinogen 0.2 (0-1) mg/dL Urine Leukocytes NEGATIVE (NEGATIVE) Urine WBC (Auto) 0-2 (0-5) /HPF Urine RBC (Auto) NONE (0-2) /HPF U Epithel Cells (Auto) RARE (FEW) /HPF Urine Bacteria (Auto) NONE (NEGATIVE) /HPF Urine RBC NEGATIVE (0-5) Rush/ul Urine Mucus (Auto) SLIGHT (NEGATIVE) /HPF Ur Culture Indicated? NO Urine Glucose NEGATIVE (NEGATIVE) mg/dL Influenza Type A Ag (NEGATIVE) Influenza Type B Ag (NEGATIVE) RSV (PCR) (Negative) SARS-CoV-2 (PCR) (NEGATIVE) Slides for Path Review YES - Progress Progress Note: 04/21/22 23:42 30mg IV Toradol 1L NS bolus Counseled pt/family regarding: lab results, diagnosis, need for follow-up, rad results - Departure Departure Disposition: Home Clinical Impression: COVID-19 Condition: Stable Critical Care Time: No Referrals: HINA DE GUZMAN [Primary Care Provider] - Follow up/PCP as directed Instructions: COVID-19 (DC) Additional Instructions: Quarantine for 5 days Start Paxlovid Follow up as needed Prescriptions: Nirmatrelvir/Ritonavir [Paxlovid 2X150 mg-100 mg (Eua)] 1 each PO BID 5 Days #30 tablet
[2022-04-21 20:52] LABS: Absolute Neutrophil Ct (ANC) 4.05 x10^3/uL (1.4-6.9); Basophil (Absolute #) 0.02 x10^3/uL (0-0.4); Eosinophil % 2.1 % (0.00-5.0); Hematocrit 38.7 % (35-47); Hemoglobin 12.3 g/dL (12.0-16.0); Lymphocyte (Absolute #) 0.35 x10^3/uL (1.0-4.6); Lymphocytes % 7.4 % (24.0-44.0); Mean Cell Volume 93.3 fL (78-100); Mean Corpuscular Hemoglobin 29.6 pg (26-32); Mean Corpuscular Hgb Concent. 31.8 g/dL (32-36); Mean Platelet Volume 9.7 fL (7.5-11.0); Monocyte (Absolute #) 0.16 x10^3/uL (0.0-1.3); Monocytes % 3.4 % (0.0-12.0); Neutrophil % 86.3 % (36.0-66.0); Platelet Count 239 x10^3/uL (150-450); Red Blood Count 4.15 x10^6/uL (4.1-5.4); Red Cell Distribution Width 13.1 % (11.5-14.0); White Blood Count 4.7 x10^3/uL (4.0-10.5)
[2022-04-21 21:00] LABS: Appearance CLEAR (CLEAR); Bilirubin NEGATIVE (NEGATIVE); Dipstick done @ ? MAIN LAB; Glucose NEGATIVE (NEGATIVE); Ketones NEGATIVE (NEGATIVE); Nitrite NEGATIVE (NEGATIVE); Protein,Urine Dip NEGATIVE (Negative); RBC NEGATIVE Ery/ul (0-5); Specific Gravity 1.025 (1.005-1.025); Urobilinogen 0.2 mg/dL (0-1)
[2022-04-21 21:05] LABS: Epithelial Cells RARE /HPF (FEW); Mucus SLIGHT /HPF (NEGATIVE); WBC 0-2 /HPF (0-5)
[2022-04-21 21:06] LABS: Urine Cultured Indicated? NO
[2022-04-21 21:10] LABS: ALBUMIN 4.1 g/dL (3.5-5.0); ALKALINE PHOSPHATASE 66 U/L (38-126); BLOOD UREA NITROGEN 17 mg/dL (7-17); CHLORIDE 105 mmol/L (98-107); Calcium 9.1 mg/dL (8.4-10.2); Carbon Dioxide 23 mmol/L (22-30); Creatinine 1 0.64 mg/dL (0.52-1.04); EST GLOMERULAR FILTRATION RATE > 60.0 ML/MIN; Glucose 110 mg/dL (74-106); Potassium 3.9 mmol/L (3.5-5.1); SGOT/AST 34 U/L (14-36); SGPT/ALT 23 U/L (0-35); SODIUM 137 mmol/L (137-145); Total Protein 7.3 g/dL (6.3-8.2)
[2022-04-21 21:32] LABS: Slide Review 1 YES
[2022-04-21] MEDS ORDERED: TORAdol 30 mg Injection IV ONE (22:47)
[2022-04-21] MEDS ORDERED: Sodium Chloride 0.9% 1000 ML 1,000 ML IV STA (22:47)
[2022-04-21] MEDS ORDERED: Sodium Chloride 0.9% 1000 ML 1,000 ML ONE (22:53)
[2022-04-21] MEDS ORDERED: TORAdol 30 mg Injection ONE (22:53)
[2022-04-21 23:04] VITALS: BP 118/76; PULSE 83
[2022-04-21 23:33] LABS: INFLUENZA A NEGATIVE (NEGATIVE); INFLUENZA B NEGATIVE (NEGATIVE); RESPIRATORY SYNCTIAL VIRUS NEGATIVE (Negative)
[2022-04-21 23:37] LABS: SARS-CoV-2 Xpert Express POSITIVE (NEGATIVE)
[2022-04-21 23:46] VITALS: O2SAT 99
--- NOTE | 2022-04-22 08:53 | XRAY ---
Indication: Left flank pain. Multiple contiguous axial images obtained through the abdomen and pelvis without contrast. Comparison: None Lung bases clear. Heart not enlarged. Stomach is mildly distended with food/fluid. Noncontrasted stomach and bowel loops appear nonobstructed with normal appendix. Retroverted uterus with IUD in situ. Tiny cul-de-sac fluid presumed physiologic from rupture/leaking cyst. No walled off fluid collection or free air. Remaining liver, gallbladder, pancreas, spleen, adrenal glands, kidneys, ureters, bladder, uterus, and aorta are unremarkable for noncontrast exam. Osseous structures intact. No ventral or inguinal hernias. Impression: 1. Tiny physiologic cul-de-sac free fluid and uterine IUD. 2. Remaining CT abdomen/pelvis without contrast exam is negative.
== END 2022-04-21 23:55 | disposition home or self-care (01) ==
LOC: ED 19:56
DX: U07.1 COVID-19 (principal); R10.9 Unspecified abdominal pain; Z72.0 Tobacco use
CPT/HCPCS: 0241U; 36000; 36415; 74176; 80053; 81015; 84703; 85025; 96360; 96374; 99284; J1885

== ENCOUNTER 2022-12-19 11:45 | Emergency (ER) | payer OTHER ==
[2022-12-19] MEDS ORDERED: MORPHINE SULFATE 2 MG INJ IV ONE ×2 (12:23→14:54)
[2022-12-19] MEDS ORDERED: MORPHINE SULFATE 2 MG INJ ONE ×2 (12:28→15:22)
[2022-12-19] MEDS ORDERED: Sodium Chloride 0.9% 1000 ML 1,000 ML ONE (12:28)
[2022-12-19] MEDS ORDERED: Sodium Chloride 0.9% 1000 ML 1,000 ML IV SCH (12:30)
[2022-12-19 12:32] LABS: Absolute Neutrophil Ct (ANC) 2.96 x10^3/uL (1.4-6.9); BASOPHIL % 0.7 % (0.0-0.4); Basophil (Absolute #) 0.04 x10^3/uL (0-0.4); Eosinophil % 7.1 % (0.00-5.0); Eosinophil (Absolute #) 0.43 x10^3/uL (0-0.5); Hematocrit 43.1 % (35-47); Hemoglobin 13.9 g/dL (12.0-16.0); IMMATURE GRAN # 0.01 x10^3u/L (0.00-0.03); IMMATURE GRAN % 0.2 % (0.00-0.4); Lymphocyte (Absolute #) 2.19 x10^3/uL (1.0-4.6); Lymphocytes % 36.2 % (24.0-44.0); Mean Cell Volume 91.9 fL (78-100); Mean Corpuscular Hemoglobin 29.6 pg (26-32); Mean Corpuscular Hgb Concent. 32.3 g/dL (32-36); Monocyte (Absolute #) 0.42 x10^3/uL (0.0-1.3); Monocytes % 6.9 % (0.0-12.0); Neutrophil % 48.9 % (36.0-66.0); Platelet Count 265 x10^3/uL (150-450); Red Blood Count 4.69 x10^6/uL (4.1-5.4); White Blood Count 6.1 x10^3/uL (4.0-10.5)
[2022-12-19 12:45] LABS: ALBUMIN 4.5 g/dL (3.5-5.0); ALKALINE PHOSPHATASE 91 U/L (38-126); BLOOD UREA NITROGEN 14 mg/dL (7-17); CHLORIDE 106 mmol/L (98-107); Carbon Dioxide 26 mmol/L (22-30); EST GLOMERULAR FILTRATION RATE > 60.0 ML/MIN; Glucose 86 mg/dL (74-106); LIPASE 63 U/L (23-300); Potassium 4.1 mmol/L (3.5-5.1); SGOT/AST 27 U/L (14-36); SGPT/ALT 22 U/L (0-35); SODIUM 140 mmol/L (137-145); Total Protein 7.6 g/dL (6.3-8.2)
--- NOTE | 2022-12-19 13:18 | ERPHSYRPT ---
- History of Present Illness Historian: patient Exam Limitations: no limitations Patient Subjective Stated Complaint: sent from clinic for left lower abd pain for a seek getting worse, no fever Triage Nursing Assessment: pt alert. arrived per wc , holding left side at time, skin w/d/p,. face mask in place Timing/Duration: week(s) (one) Activities at Onset: none Quality: stabbing Abdominal Pain Onset Location: LLQ Pain Radiation: flank Severity of Pain-Max: moderate Severity of Pain-Current: moderate Modifying Factors: Improves With: coughing, movement Associated Symptoms: No back, No diarrhea Previous symptoms: no prior history Hx Tetanus, Diphtheria Vaccination/Date Given: No Hx Influenza Vaccination/Date Given: Yes Hx Pneumococcal Vaccination/Date Given: No Immunizations Up to Date: Yes <OMID GOMEZ - Last Filed: 12/19/22 13:32> <INES PALACIO - Last Filed: 12/19/22 16:38> - History of Present Illness Time Seen by Provider: 12/19/22 12:10 Physician History: .This is a 27-year-old patient presenting to the ED with left lower quadrant abdominal pain ongoing for the past 1 week. Initially pain was intermittent -States that currently the pain is 7/10, constant, stabbing, creased with standing or bearing weight, radiating to her flank. -Denies any fall or injury -Has an IUD, history of , sexually active, denies vaginal discharge. -Reports her urine has been smelling and dark -Denies any fever/nausea/vomiting/chest pain Has not been on any new medications Denies prior abdominal surgery (OMID GOMEZ) Allergies/Adverse Reactions: Penicillins Allergy (Severe, Verified 12/19/22 12:01) Anaphylactic Reaction Home Medications: Sertraline HCl 50 mg [Zoloft 50 mg Tablet] 50 mg PO DAILY 12/19/22 [History] Travel Risk - International Travel Have you traveled outside of the country in past 3 weeks: No - Coronavirus Screening Are you exhibiting any of the following symptoms?: No Close contact with a COVID-19 positive Pt in past 14-21 Days: No - Vaccine Status Have you recieved a Covid-19 vaccination: Yes [employer]rog[employer]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 [employer] - Vaccination Dates Date of 2cond Vaccination (if applicable): 06/27/21 <OMID GOMEZ - Last Filed: 12/19/22 13:32> - Review of Systems Constitutional: No Symptoms Eyes: No Symptoms Ears, Nose, & Throat: No Symptoms Respiratory: No Symptoms Cardiac: No Symptoms Abdominal/Gastrointestinal: Abdominal Pain, Nausea, No Vomiting, No Constipation, No Hematochezia, No Appetite Changes Genitourinary Symptoms: No Symptoms, No Dysuria, No Frequency, No Urgency, No Urinary Retention Musculoskeletal: No Symptoms Skin: No Symptoms Neurological: No Symptoms Psychological: No Symptoms All Other Systems: Reviewed and Negative <OMID GOMEZ - Last Filed: 12/19/22 13:32> - Past Medical History Pertinent Past Medical History: Yes Neurological History: No Pertinent History ENT History: No Pertinent History Cardiac History: No Pertinent History Respiratory History: Asthma Endocrine Medical History: No Pertinent History Musculoskeletal History: No Pertinent History GI Medical History: Other History: No Pertinent History Psycho-Social History: Bipolar, Depression, Other Female Reproductive Disorders: No Pertinent History Other Medical History: Heart Murmer, seasonal depression, and manic - Past Surgical History Past Surgical History: Yes Neuro Surgical History: No Pertinent History Cardiac: No Pertinent History Respiratory: No Pertinent History Gastrointestinal: No Pertinent History Genitourinary: No Pertinent History Musculoskeletal: No Pertinent History Female Surgical History: Section - Social History Smoking Status: Current every day smoker How long have you smoked: 2 yrs Exposure to second hand smoke: Yes Drug Use: none Patient Lives Alone: No Significant Family History: no pertinent family hx - Female History Hx Last Menstrual Period: unsure Hx Now: No <OMID GOMEZ - Last Filed: 12/19/22 13:32> - Physical Exam General Appearance: mild distress Eye Exam: PERRL/EOMI, eyes nml inspection Ears, Nose, Throat Exam: normal ENT inspection, TMs normal, pharynx normal Neck Exam: normal inspection, supple, full range of motion, No non-tender Respiratory Exam: normal breath sounds, lungs clear, No chest tenderness, No respiratory distress Cardiovascular Exam: regular rate/rhythm, normal heart sounds Gastrointestinal/Abdomen Exam: soft, normal bowel sounds, tenderness (LLQ) Pelvic Exam: not done Rectal Exam: deferred Back Exam: normal inspection, normal range of motion, No CVA tenderness, No vertebral tenderness Extremity Exam: normal inspection, normal range of motion, pelvis stable Neurologic Exam: alert, oriented x 3, cooperative Skin Exam: normal color, warm, No rash Lymphatic Exam: No adenopathy SpO2: 100 <SANDIPPEREZOMID - Last Filed: 12/19/22 13:32> - Nursing Vital Signs Nursing Vital Signs: Initial Vital Signs Temperature 97.6 F 12/19/22 12:02 Pulse Rate 80 12/19/22 12:02 Respiratory Rate 18 12/19/22 12:02 Blood Pressure 108/57 12/19/22 12:02 O2 Sat by Pulse Oximetry 100 12/19/22 12:02 Pain Scale Pain Intensity 4 Ordered Tests: Active Orders 24 hr Category Date Time Status IV Insertion STAT Care 12/19/22 12:21 Active ABDOMEN AND PELVIS W/0 CONTRAS [CT] Routine Exams 12/19/22 13:16 Completed PELVIS TRANS VAGINAL [US] Stat Exams 12/19/22 14:58 Completed CBC W DIFF Stat Lab 12/19/22 12:13 Completed CMP Stat Lab 12/19/22 12:13 Completed HCG QUALITATIVE,SERUM Stat Lab 12/19/22 12:13 Completed LIPASE Stat Lab 12/19/22 12:13 Completed UA W/RFX UR CULTURE Stat Lab 12/19/22 13:15 Completed Medication Summary Generic Name Dose Route Start Last Admin Trade Name Freq PRN Reason Stop Dose Admin Sodium Chloride 1,000 mls @ 100 mls/hr 12/19/22 12:30 12/19/22 12:29 Sodium Chloride 0.9% 1000 Ml IV 01/18/23 12:29 100 mls/hr .Q10H BAILEE Administration Discontinued Medications Generic Name Dose Route Start Last Admin Trade Name Freq PRN Reason Stop Dose Admin Morphine Sulfate 2 mg 12/19/22 12:23 12/19/22 12:29 Morphine Sulfate 2 Mg/Ml Inj IV 12/19/22 12:24 2 mg STAT ONE Administration Morphine Sulfate Confirm 12/19/22 12:28 Morphine Sulfate 2 Mg/Ml Inj Administered 12/19/22 12:29 Dose 2 mg .ROUTE .STK-MED ONE Morphine Sulfate 2 mg 12/19/22 14:54 12/19/22 15:23 Morphine Sulfate 2 Mg/Ml Inj IV 12/19/22 14:55 2 mg STAT ONE Administration Morphine Sulfate Confirm 12/19/22 15:22 Morphine Sulfate 2 Mg/Ml Inj Administered 12/19/22 15:23 Dose 2 mg .ROUTE .STK-MED ONE Lab/Rad Data: Laboratory Result Diagrams 12/19/22 12:13 12/19/22 12:13 Laboratory Results 12/19/22 12/19/22 12/19/22 Range/Units 13:15 12:13 12:13 WBC (4.0-10.5) x10^3/uL RBC (4.1-5.4) x10^6/uL Hgb (12.0-16.0) g/dL Hct (35-47) % MCV (78-100) fL MCH (26-32) pg MCHC (32-36) g/dL RDW (11.5-14.0) % Plt Count (150-450) x10^3/uL MPV (7.5-11.0) fL Gran % (36.0-66.0) % Immature Gran % (Auto) (0.00-0.4) % Nucleat RBC Rel Count (0.00-0.1) % Eos # (Auto) (0-0.5) x10^3/uL Immature Gran # (Auto) (0.00-0.03) x10^3u/L Absolute Lymphs (auto) (1.0-4.6) x10^3/uL Absolute Monos (auto) (0.0-1.3) x10^3/uL Absolute Nucleated RBC (0.00-0.01) x10^3u/L Lymphocytes % (24.0-44.0) % Monocytes % (0.0-12.0) % Eosinophils % (0.00-5.0) % Basophils % (0.0-0.4) % Absolute Granulocytes (1.4-6.9) x10^3/uL Basophils # (0-0.4) x10^3/uL Sodium 140 (137-145) mmol/L Potassium 4.1 (3.5-5.1) mmol/L Chloride 106 (98-107) mmol/L Carbon Dioxide 26 (22-30) mmol/L Anion Gap 12.0 (5-15) MEQ/L BUN 14 (7-17) mg/dL Creatinine 0.60 (0.52-1.04) mg/dL Estimated GFR > 60.0 ML/MIN Glucose 86 (74-106) mg/dL Calcium 9.0 (8.4-10.2) mg/dL Total Bilirubin 0.40 (0.2-1.3) mg/dL AST 27 (14-36) U/L ALT 22 (0-35) U/L Alkaline Phosphatase 91 (38-126) U/L Serum Total Protein 7.6 (6.3-8.2) g/dL Albumin 4.5 (3.5-5.0) g/dL Lipase 63 (23-300) U/L Serum , Qual NEGATIVE (Negative) Urine Color Yellow (Yellow) Urine Appearance Clear (Clear) Urine pH 6.0 (4.6-8.0) Ur Specific [place] <=1.005 (1.005-1.030) Urine Protein Negative (Negative) Urine Glucose (UA) Negative (Negative) mg/dL Urine Ketones Negative (Negative) Urine Blood Negative (Negative) Urine Nitrite Negative (Negative) Urine Bilirubin Negative (Negative) Urine Urobilinogen 0.2 (0.2) mg/dL Ur Leukocyte Esterase Trace A (Negative) U Hyaline Cast (Auto) NONE SEEN (0-2) /LPF Urine Microscopic RBC 0-2 (0-5) /HPF Urine Microscopic WBC 0-2 (0-5) /HPF Ur Epithelial Cells None Seen (None Seen) /HPF Urine Bacteria None Seen (None Seen) /HPF Urine Culture Reflexed NO (NO) 12/19/22 Range/Units 12:13 WBC 6.1 (4.0-10.5) x10^3/uL RBC 4.69 (4.1-5.4) x10^6/uL Hgb 13.9 (12.0-16.0) g/dL Hct 43.1 (35-47) % MCV 91.9 (78-100) fL MCH 29.6 (26-32) pg MCHC 32.3 (32-36) g/dL RDW 13.0 (11.5-14.0) % Plt Count 265 (150-450) x10^3/uL MPV 10.0 (7.5-11.0) fL Gran % 48.9 (36.0-66.0) % Immature Gran % (Auto) 0.2 (0.00-0.4) % Nucleat RBC Rel Count 0.0 (0.00-0.1) % Eos # (Auto) 0.43 (0-0.5) x10^3/uL Immature Gran # (Auto) 0.01 (0.00-0.03) x10^3u/L Absolute Lymphs (auto) 2.19 (1.0-4.6) x10^3/uL Absolute Monos (auto) 0.42 (0.0-1.3) x10^3/uL Absolute Nucleated RBC 0.00 (0.00-0.01) x10^3u/L Lymphocytes % 36.2 (24.0-44.0) % Monocytes % 6.9 (0.0-12.0) % Eosinophils % 7.1 H (0.00-5.0) % Basophils % 0.7 (0.0-0.4) % Absolute Granulocytes 2.96 (1.4-6.9) x10^3/uL Basophils # 0.04 (0-0.4) x10^3/uL Sodium (137-145) mmol/L Potassium (3.5-5.1) mmol/L Chloride (98-107) mmol/L Carbon Dioxide (22-30) mmol/L Anion Gap (5-15) MEQ/L BUN (7-17) mg/dL Creatinine (0.52-1.04) mg/dL Estimated GFR ML/MIN Glucose (74-106) mg/dL Calcium (8.4-10.2) mg/dL Total Bilirubin (0.2-1.3) mg/dL AST (14-36) U/L ALT (0-35) U/L Alkaline Phosphatase (38-126) U/L Serum Total Protein (6.3-8.2) g/dL Albumin (3.5-5.0) g/dL Lipase (23-300) U/L Serum , Qual (Negative) Urine Color (Yellow) Urine Appearance (Clear) Urine pH (4.6-8.0) Ur Specific T[place] (1.005-1.030) Urine Protein (Negative) Urine Glucose (UA) (Negative) mg/dL Urine Ketones (Negative) Urine Blood (Negative) Urine Nitrite (Negative) Urine Bilirubin (Negative) Urine Urobilinogen (0.2) mg/dL Ur Leukocyte Esterase (Negative) U Hyaline Cast (Auto) (0-2) /LPF Urine Microscopic RBC (0-5) /HPF Urine Microscopic WBC (0-5) /HPF Ur Epithelial Cells (None Seen) /HPF Urine Bacteria (None Seen) /HPF Urine Culture Reflexed (NO) <OMID GOMEZ - Last Filed: 12/19/22 13:32> - Progress Progress: improved, pain not gone completely Counseled pt/family regarding: lab results, diagnosis, need for follow-up, rad results <INES PALACIO - Last Filed: 12/19/22 16:38> - Progress Progress Note: 12/19/22 13:17 . . Initially an IV line was established and patient was given IV fluids and morphine labs and imaging pending carte handed over to at shift chage ([facility]) 12/19/22 16:32 CBC, CMP, lipase, HCG wnl. UA showed trace LE and patient reports dysuria and urgency x 2 days. Transvaginal US showed no torsion, but did show 2 dominant left ovarian cysts. CT abd/pelvis showed free fluid in pelvis likely from ruptured ovarian cyst. Patient's pain improved, advised f/u w/ PCP. Will tx UTI w/ Macrobid and send Naproxen to pharmacy for pain control. (INES PALACIO) Medical Desision Making - Diagnostic Testing Diagnostic test were ordered, analyzed, and reviewed by me: Yes Radiological Interpretation: Reviewed by me - Risk of complications The pt has a mod risk of morbidity or mortality based on: Need for prescription drug management <INES PALACIO - Last Filed: 12/19/22 16:38> <SANDIPPEREZOMID - Last Filed: 12/19/22 13:32> - Departure Departure Disposition: Home Critical Care Time: No <INES PALACIO - Last Filed: 12/19/22 16:38> - Departure Clinical Impression: Ovarian cyst, UTI (urinary tract infection) Condition: Stable Referrals: HINA DE GUZMAN [Primary Care Provider] - Follow up/PCP as directed Instructions: Ovarian Cyst (DC), Urinary Tract Infection, Adult ED Prescriptions: Nitrofurantoin Monohyd/M-Cryst [Macrobid 100 mg Capsule] 100 mg PO BID 5 Days #10 cap Naproxen Sodium 550 mg PO BID 10 Days #20 tablet
[2022-12-19 13:55] LABS: Appearance Clear (Clear); Bacteria None Seen /HPF (None Seen); Bilirubin Negative (Negative); Blood Negative (Negative); Epithelial Cells None Seen /HPF (None Seen); Glucose, Urine Negative (Negative); Hyaline Casts NONE SEEN /LPF (0-2); Ketones Negative (Negative); Leukocyte Esterase Trace (Negative); Nitrite Negative (Negative); Protein,Urine Dip Negative (Negative); RBC 0-2 /HPF (0-5); Specific Gravity <=1.005 (1.005-1.030); Urobilinogen 0.2 mg/dL (0.2); WBC 0-2 /HPF (0-5)
[2022-12-19 13:58] LABS: ADD URINE CULTURE? NO (NO)
--- NOTE | 2022-12-19 14:35 | XRAY ---
Indication: Left lower quadrant pain. Multiple contiguous axial images obtained through the abdomen and pelvis without contrast. Comparison: April 21, 2022 Lung bases clear. Heart is not enlarged. Noncontrasted stomach and bowel loops nonobstructed again with normal appendix. Again slightly retroverted uterus with IUD in situ. There remains tiny cul-de-sac fluid presumed physiologic from rupture/leaking cyst. No free air. Remaining liver, gallbladder, pancreas, spleen, adrenal glands, kidneys, ureters, bladder, uterus, and aorta are unremarkable for noncontrast exam. Osseous structures intact. Impression: 1. Again uterine IUD in situ and tiny physiologic cul-de-sac fluid. 2. Remaining CT abdomen/pelvis without contrast exam continues to be negative.
--- NOTE | 2022-12-19 15:13 | XRAY ---
Indication: Pelvic pain. Torsion. Two-dimensional transvaginal pelvic sonogram performed. Comparison: April 25, 2014 Uterus again retroverted measuring 7.3 x 2.9 x 4.5 cm. No focal solid/cystic uterine mass. New uterine IUD with tip at the level of the pelvis as seen on same-day CT exam. Endometrial stripe measures 8.3 mm. No endometrial cavity mass or fluid collection. Right ovary measures 3.1 x 1.7 x 2.5 cm and the left measures 5.5 x 2.2 x 3.0 cm. Normal perfusion and follicular cysts bilaterally. Left ovary demonstrates 2 anechoic cysts, larger 2.8 and smaller 2.3 cm with small adjacent free fluid presumed physiologic from rupture/leaking cyst. No suspicious solid adnexal mass. Impression: 2 dominant left ovary cysts with small left adnexal free fluid. Uterine IUD in situ. Remaining transvaginal pelvic sonogram is negative.
[2022-12-19 16:12] VITALS: BP 102/61; PULSE 67; O2SAT 100
== END 2022-12-19 16:54 | disposition home or self-care (01) ==
LOC: ED 11:45
DX: N39.0 Urinary tract infection, site not specified (principal); N83.202 Unspecified ovarian cyst, left side; R10.32 Left lower quadrant pain; R30.0 Dysuria; Z79.899 Other long term (current) drug therapy; Z72.0 Tobacco use
CPT/HCPCS: 36000; 36415; 74176; 76830; 80053; 81001; 83690; 84703; 85025; 96360; 96361; 96374; 96376; 99284; J2270